=== PATIENT | male | born 1980 | race Caucasian/White ===

== ENCOUNTER → 2024-01-28 07:44 | Outpatient (REF) | payer OTHER, SELFPAY | LOC: RAD 07:44 | PROVIDERS: ATTENDING PHYSICIAN Nurse Practitioner | DX: E01.0 Iodine-deficiency related diffuse (endemic) goiter (principal) | CPT/HCPCS: 78014; A9516 ==

== ENCOUNTER 2024-08-20 19:39 | Emergency (ER) | payer OTHER, SELFPAY ==
[2024-08-20 19:46] VITALS: BP 166/110
[2024-08-20] MEDS: ATIVAN 1 MG PO (20:03)
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
[2024-08-20 20:34] LABS: % Basophils 0.3 % (0-2); % Eosinophils 1.5 % (0-6); % Immature Granulocytes 0.4 % (0-0.5); % Lymphocytes 18.7 % (20.5-51.1); % Monocytes 4.4 % (1.7-9.3); % Neutrophils 74.7 % (42.2-75.2); Absolute Eosinophils 0.1 10^3/uL (0-0.7); Absolute Lymphocytes 1.4 10^3/uL (1.2-3.4); Absolute Monocytes 0.3 10^3/uL (0.1-0.6); Absolute Neutrophils 5.6 10^3/uL (1.4-6.5); Hematocrit 40.1 % (39.0-52.0); Hemoglobin 13.7 g/dL (13.0-18.0); Mean Corp Hgb Conc. 34.2 g/dL (33.0-37.0); Mean Corpuscular Hgb 29.3 pg (27.0-31.0); Mean Corpuscular Volume 85.9 fL (80.0-94.0); Mean Platelet Volume 8.9 fL (7.4-10.4); Nucleated Red Blood Cells % 0 % (-); Platelet Count 222 10^3/uL (130-400); Red Blood Cell Count 4.67 10^6/uL (4.70-6.10); Red Cell Dist. Width 13.4 % (11.5-14.5); White Blood Cell Count 7.5 10^3/uL (4.8-10.8)
[2024-08-20 20:46] LABS: ALT (SGPT) 23 U/L (0-50); AST (SGOT) 25 U/L (17-59); Acetaminophen < 10 ug/ml (10-30); Albumin 4.2 g/dl (3.5-5.0); Alkaline Phosphatase 57 U/L (38-126); Carbon Dioxide 29 mmol/L (22-30); Chloride 101 mmol/L (98-107); Glucose 162 mg/dl (70-99); Potassium 4.2 mmol/L (3.5-5.1); Salicylate < 1.0 mg/dl (2.0-20.0); Sodium 140 mmol/L (135-145); Total Protein 6.6 g/dl (6.3-8.2); eGFR > 60.00
[2024-08-20 20:48] LABS: Alcohol None Detected
[2024-08-20 20:55] LABS: Blood Urea Nitrogen 18 mg/dl (9-20); Total Bilirubin 0.2 mg/dl (0.2-1.3)
[2024-08-20 21:16] LABS: TSH Reflex To Free T4 0.69 uIU/ml (0.47-4.68)
== END 2024-08-20 23:12 ==
LOC: EMR 19:39
PROVIDERS: EMERGENCY PHYSICIAN Emergency Medicine
DX: S51.812A Laceration without foreign body of left forearm, initial encounter (principal); X78.8XXA Intentional self-harm by other sharp object, initial encounter; K21.9 Gastro-esophageal reflux disease without esophagitis; F41.8 Other specified anxiety disorders
CPT/HCPCS: 99283; 12002; 80053; 80143; 80179; 82077; 84443; 85025

== ENCOUNTER 2024-12-17 06:25 | Day surgery (SDC) | payer OTHER, SELFPAY | END 2024-12-17 16:25 | disposition home or self-care (01) | LOC: GI 06:25 | PROVIDERS: ATTENDING PHYSICIAN Internal Medicine | DX: K92.1 Melena (principal); R63.4 Abnormal weight loss; K64.8 Other hemorrhoids; K57.30 Diverticulosis of large intestine without perforation or abscess without bleeding; K44.9 Diaphragmatic hernia without obstruction or gangrene; K31.7 Polyp of stomach and duodenum; K31.89 Other diseases of stomach and duodenum; K22.89 Other specified disease of esophagus; D12.0 Benign neoplasm of cecum; K63.5 Polyp of colon; K62.1 Rectal polyp; K29.50 Unspecified chronic gastritis without bleeding; K22.70 Barrett's esophagus without dysplasia | CPT/HCPCS: 45385; 45380; 43239; 88305; 88342 ==

== ENCOUNTER → 2024-12-22 07:52 | Outpatient (REF) | payer OTHER, SELFPAY | LOC: RAD 07:52 | PROVIDERS: ATTENDING PHYSICIAN Internal Medicine; FAMILY PHYSICIAN General Practice | DX: K62.5 Hemorrhage of anus and rectum (principal); R63.4 Abnormal weight loss; R11.0 Nausea | CPT/HCPCS: 74177; Q9967 ==

== ENCOUNTER 2025-06-08 06:08 | Outpatient (RCR) | payer OTHER, SELFPAY | END 2025-06-08 23:59 | disposition home or self-care (01) | LOC: RPT 06:08 | PROVIDERS: ATTENDING PHYSICIAN General Practice | DX: Z47.89 Encounter for other orthopedic aftercare (principal); M25.512 Pain in left shoulder; M25.522 Pain in left elbow; Z73.6 Limitation of activities due to disability; M62.81 Muscle weakness (generalized); S42.302D Unspecified fracture of shaft of humerus, left arm, subsequent encounter for fracture with routine healing; W34.00XD Accidental discharge from unspecified firearms or gun, subsequent encounter | CPT/HCPCS: 97110; 97161 ==

== ENCOUNTER 2025-09-20 06:21 | Outpatient (RCR) | payer OTHER, SELFPAY | END 2025-09-20 23:59 | disposition home or self-care (01) | LOC: RPT 06:21 | PROVIDERS: ATTENDING PHYSICIAN General Practice | DX: Z47.89 Encounter for other orthopedic aftercare (principal); S42.302D Unspecified fracture of shaft of humerus, left arm, subsequent encounter for fracture with routine healing; M62.81 Muscle weakness (generalized); Z73.6 Limitation of activities due to disability; R20.2 Paresthesia of skin; M25.512 Pain in left shoulder; M79.602 Pain in left arm; M54.2 Cervicalgia; R20.0 Anesthesia of skin; Y24.9XXD Unspecified firearm discharge, undetermined intent, subsequent encounter | CPT/HCPCS: 97110; 97162 ==